=== PATIENT | male | born 1930 | race Caucasian/White ===

== ENCOUNTER → 2016-10-27 | Outpatient (CLI) | payer BC ==
[2016-10-27 10:56] LABS: BASO % 0.5 %; BASO ABS # 0.03 K/uL (0-0.2); COMPLETE YES; IG% 0.3 %; LYMPH % 34.8 %; LYMPH ABS # 2.18 K/uL (1.2-3.4); MEAN CORPUSCULAR HEMOGLOBIN 29.1 pg (25-34); MEAN CORPUSCULAR HGB CONC 34.6 g/dl (32-36); MEAN PLATELET VOLUME 9.8 fL (7.4-10.4); NEUT % 52.4 %; PLATELET COUNT 223 K/uL (130-400); RED BLOOD COUNT 4.88 M/uL (4.7-6.1); WHITE BLOOD COUNT 6.27 K/uL (4.8-10.8)
[2016-10-27 11:01] LABS: URINE APPEARANCE CLOUDY (CLEAR); URINE BILIRUBIN NEG (NEG); URINE COLOR YELLOW; URINE EPITHELIAL CELL AUTO 0-5 /lpf (0-5); URINE NITRITE NEG (NEG); URINE SPECIFIC GRAVITY 1.029 (1.000-1.030); UROBILINOGEN NEG (NEG)
[2016-10-27 11:02] LABS: MANUAL MICROSCOPIC REQUIRED? NO; REVIEW REQ? NO
[2016-10-27 11:05] LABS: ALT/SGPT 27 U/L (12-78); AST/SGOT 14 U/L (15-37); BLOOD UREA NITROGEN 20 mg/dl (7-18); BUN/CREATININE RATIO 21.2 (10-20); CARBON DIOXIDE 28 mmol/L (21-32); CHLORIDE 106 mmol/L (98-107); CHOLESTEROL 133 mg/dl (0-200); CREATININE 0.95 mg/dl (0.60-1.40); GLUCOSE 153 mg/dl (70-99); POTASSIUM 3.6 mmol/L (3.5-5.1); SODIUM 143 mmol/L (136-145); URIC ACID 5.6 mg/dl (2.6-7.2)
[2016-10-27 11:15] LABS: HDL CHOLESTEROL 33 mg/dl; LDL CHOLESTEROL CALCULATED 62 mg/dl; TRIGLYCERIDES 190 mg/dl (0-150); VERY LOW DENSITY LIPOPROT CALC 38 mg/dl
[2016-10-27 11:23] LABS: ESTIMATED AVERAGE GLUCOSE 157 mg/dl; HA1C FLAG Normal (Normal)
== END | disposition home or self-care (01) ==
LOC: C.LABBC 07:31
PROVIDERS: ATTEND Internal Medicine
DX: E11.9 Type 2 diabetes mellitus without complications (principal)

== ENCOUNTER → 2017-02-15 | Outpatient (CLI) | payer BC ==
[~2017-02-15] MED LIST: GLIP-197 PO; LSN/10125 PO; METF-384 PO; SIMV40TA2 PO
[2017-02-15 11:35] LABS: ESTIMATED AVERAGE GLUCOSE 146 mg/dl; HA1C FLAG Normal (Normal)
== END | disposition home or self-care (01) ==
LOC: C.LABBC 07:27
PROVIDERS: ATTEND Internal Medicine
DX: E11.9 Type 2 diabetes mellitus without complications (principal)

== ENCOUNTER → 2017-06-02 | Day surgery (SDC) | payer BC ==
[2017-05-20 10:30] VITALS: Ht 179.1 cm; Wt 80.9 kg
[~2017-06-02] VITALS: Ht 179.1 cm; Wt 80.9 kg
[~2017-06-02] MED LIST changes: +500ML BSS 0.3ML EPI 1:1000PF IRRIG ONE; +ACETAMINOPHEN 325 MG TAB PO PRN; +AMVISC PLUS 0.8ML SYRINGE INT OCU ONE; +ATROPINE SULFATE 0.1 MG/ML 5ML SYR IV PRN; +BETAXOLOL HCL 0.25% OP SUSP PER DROP CHARGE OPL SCH; +BRIMONIDINE TART 0.2% OP SOLN PER DROP CHARGE ONE; +BRIMONIDINE TARTRATE 0.2% 5ML ONE; +BSS FLUSH ONE; +ENDOCOAT 0.85ML SYRINGE INT OCU ONE; +EpHEDrine SULFATE INJ 50 MG/ML AMP IV PRN; +EpINEphrine INJ 1MG/ML AMP 1 MG/ML AMP ONE; +LACTATED RINGER'S 1000ML 500 ML IV SCH; +LIDOCAINE 4% OP SOLN DROP CHARGE ONE; +LIDOCAINE 4% OP SOLN DROP CHARGE OPL SCH; +LIDOCAINE HCL 1% MPF 2 ML VIAL ONE; +MIDAZOLAM HCL 1 MG/ML 2ML VIAL ONE; +MIX: 4ML BSS 1ML EPI 1:1000 PF INSTIL ONE; +MOXIFLOXACIN OPH SOLN PER DROP CHARGE ONE; +OCUCOAT 1 ML SOLN IO ONE; +POVIDONE-IODINE OP SOLN 30 ML BTL ONE; +PROPARACAINE 0.5% OP SOLN PER DROP CHARGE OPL SCH; +TOBRAMYCIN/DEXAMETHASONE OPH OINT PER APPLN CHARGE ONE
[2017-06-02] MEDS: PHENYLEPHRINE HCL 2.5% OP SOLN PER DROP CHARGE OPL SCH ×2 (06:35→06:41)
[2017-06-02] MEDS: TROPICAMIDE 1% OP SOLN PER DROP CHARGE OPL SCH ×2 (06:36→06:42)
[2017-06-02] MEDS: CYCLOPENTOLATE HCL 1% OP SOLN PER DROP CHARGE OPL SCH ×2 (06:37→06:43)
[2017-06-02] MEDS: MOXIFLOXACIN OPH SOLN PER DROP CHARGE OPL SCH ×2 (06:38→06:48)
--- NOTE | 2017-06-02 06:41 | History & Physical Bridge - [place] ---
H&P Re-Evaluation Bridge Note: I have examined the patient, reviewed the History & Physical and in the interval since the performance of the History & Physical I have noted the following changes of clinical significance: No changes noted
--- NOTE | 2017-06-02 07:16 | Discharge Instructions-SurgCtr ---
Discharge Instructions Date of Service Jun 02, 2017. Visit Reason for Visit: Cataract Left Eye Discharge Discharge Diagnosis / Problem: lens implant left eye Discharge Goals Goal(s): Improve function Medications Stopped Medications Name(s): METFORMIN LAST DOSE ON WEDNESDAY Activity Recommendations Activity Limitations: resume your previous activity Lifting Limitations: no more than 10 pounds Exercise/Sports Limitations: gradually increase as tolerated May Resume Sexual Activity: when tolerated Shower/Bathe: tomorrow Driving or Machine Use: resume 1 day after discharge Anesthesia . Post Anesthesia Instructions: If you have had General Anesthesia or IV Sedation: * Do not drive today. * Resume driving when surgeon permits. * Do not make important decisions or sign legal documents today. * Call surgeon for: 1. Temperature elevations greater than 101 degrees F. 2. Uncontrollable pain. 3. Excessive bleeding. 4. Persistent nausea and vomiting. 5. Medication intolerance (nausea, vomiting or rash). * For nausea and vomiting use only clear liquids such as: tea, soda, bouillon until nausea subsides, then gradually increase diet as tolerated. * If you have any concerns or questions, call your surgeon's office. If physician is unavailable and it is an emergency, call 911 or go to the nearest emergency room. . Instructions / Follow-Up Instructions / Follow-Up ACTIVITY RECOMMENDATIONS: * Light activities. * Mild irritation and blurred vision are common for the first few days. * You may walk outside, read, watch television. * Redness around the white part of the eye is common. MEDICATIONS: Resume previous medications unless instructed otherwise by your surgeon. Start all eye drops at 1 pm today: * Eye drops (today and tomorrow): Durezol - one drop in operative eye every 3 hours while awake Ofloxacin - one drop in operative eye every 3 hours while awake SPECIAL CARE INSTRUCTIONS: * Tape plastic shield over eye to sleep at night. Call your doctor at with any concerns or problems. FOLLOW UP VISIT: Follow-up with Dr Fisher at [place] office as scheduled. Diet Recommendations Home Diet: no limitations Procedures Procedures Performed: Left Cataract Phacoemulsification With Intraocular Lens Implant Pending Studies Studies pending at discharge: no Medical Emergencies . Who to Call and When: Medical Emergencies: If at any time you feel your situation is an emergency, please call 911 immediately. . Non-Emergent Contact Non-Emergency issues call your: [employer] Call Non-Emergent contact if: your pain is not controlled [phone] . . "Provider Documentation" section prepared by Jose Fisher. .
--- NOTE | 2017-06-02 07:20 | [facility] Operative Report ---
Operative Report Date of Service Jun 02, 2017. Operative Report 1. PREOPERATIVE DIAGNOSIS: Senile nuclear cataract, left eye. 2. POSTOPERATIVE DIAGNOSIS: Senile nuclear cataract, left eye. 3. PROCEDURE: Phacoemulsification of left cataract with posterior chamber lens implant, type [employer], model MI60L, power +20.0 diopters. ANESTHESIA: Local standby. SURGEON: Dr. Fisher. COMPLICATIONS: None. OPERATING TIME: 10 minutes. 4. OPERATION AND FINDINGS: DESCRIPTION OF PROCEDURE: The left pupil was dilated. The anesthetic was administered using a topical technique. The left eye was prepped and draped. A speculum was placed. A clear corneal incision was formed. The chamber was filled with Amvisc Plus and Endocoat. Epinephrine solution was used. A paracentesis was placed. A capsulorrhexis was performed. The nucleus was hydrodissected. A dense lens was removed with phacoemulsification. There was a mild amount of Iris atrophy. Time was 12.36 seconds. The aspiration unit was used to remove the cortex. The capsule was filled with Amvisc Plus. The lens implant was folded and placed into the capsule. The incision was hydrated. The Amvisc was aspirated. The wound was secure. The chamber was deep. The pupil was round. Brimonidine, TobraDex ointment and Vigamox solution were placed. The speculum was removed. The patient was returned to the Recovery Room in stable condition. I attest to the content of the Intraoperative Record and any orders documented therein. Any exceptions are noted below. The scribe's documentation has been prepared in my presence, under my direction and personally reviewed by me in its entirety. I confirm that the note above accurately reflects all work, treatment, procedures, and medical decision making performed by me. I personally scribed for Jose Fisher M.D. ([email or web address]) on 06/02/17 at 07:20. Electronically submitted by Milla WESTON).
--- NOTE | 2017-06-02 07:35 | Anesthesiology Progress Note ---
Anesthesia Post Op Note Date & Time Jun 02, 2017 at 07:34 Vital Signs Pain Intensity: 0 Vital Signs Past 12 Hours Date Time Temp Pulse Resp B/P (MAP) Pulse Ox O2 Delivery O2 Flow Rate FiO2 06/02/17 07:21 36.3 67 12 133/76 (95) 97 Room Air 06/02/17 06:26 36.9 73 22 153/90 (111) 96 Room Air Notes Mental Status: alert / awake / arousable, participated in evaluation Nausea / Vomiting: adequately controlled Pain: adequately controlled Airway Patency, RR, SpO2: stable & adequate BP & HR: stable & adequate Hydration State: stable & adequate Anesthetic Complications: no major complications apparent
[2017-06-02 07:46] VITALS: BP 144/82; PULSE 72; TEMP 36.4; O2SAT 96
== END | disposition home or self-care (01) ==
LOC: X.SURG 06:05
PROVIDERS: ATTEND Specialist
DX: H25.12 Age-related nuclear cataract, left eye (principal); E11.36 Type 2 diabetes mellitus with diabetic cataract; I10 Essential (primary) hypertension; Z79.84 Long term (current) use of oral hypoglycemic drugs; Z79.899 Other long term (current) drug therapy

== ENCOUNTER → 2017-08-13 | Outpatient (CLI) | payer BC ==
[~2017-08-13] MED LIST changes: -500ML BSS 0.3ML EPI 1:1000PF IRRIG ONE; -ACETAMINOPHEN 325 MG TAB PO PRN; -AMVISC PLUS 0.8ML SYRINGE INT OCU ONE; -ATROPINE SULFATE 0.1 MG/ML 5ML SYR IV PRN; -BETAXOLOL HCL 0.25% OP SUSP PER DROP CHARGE OPL SCH; -BRIMONIDINE TART 0.2% OP SOLN PER DROP CHARGE ONE; -BRIMONIDINE TARTRATE 0.2% 5ML ONE; -BSS FLUSH ONE; -ENDOCOAT 0.85ML SYRINGE INT OCU ONE; -EpHEDrine SULFATE INJ 50 MG/ML AMP IV PRN; -EpINEphrine INJ 1MG/ML AMP 1 MG/ML AMP ONE; -LACTATED RINGER'S 1000ML 500 ML IV SCH; -LIDOCAINE 4% OP SOLN DROP CHARGE ONE; -LIDOCAINE 4% OP SOLN DROP CHARGE OPL SCH; -LIDOCAINE HCL 1% MPF 2 ML VIAL ONE; -MIDAZOLAM HCL 1 MG/ML 2ML VIAL ONE; -MIX: 4ML BSS 1ML EPI 1:1000 PF INSTIL ONE; -MOXIFLOXACIN OPH SOLN PER DROP CHARGE ONE; -OCUCOAT 1 ML SOLN IO ONE; -POVIDONE-IODINE OP SOLN 30 ML BTL ONE; -PROPARACAINE 0.5% OP SOLN PER DROP CHARGE OPL SCH; -TOBRAMYCIN/DEXAMETHASONE OPH OINT PER APPLN CHARGE ONE
[2017-08-13 11:13] LABS: BASO % 0.3 %; BASO ABS # 0.02 K/uL (0-0.2); EOS % 3.4 %; EOS ABS # 0.24 K/uL (0-0.5); HEMATOCRIT 40.8 % (42-52); IG# 0.04 K/uL (0.00-0.02); LYMPH % 30.3 %; LYMPH ABS # 2.13 K/uL (1.2-3.4); MEAN CELL VOLUME 86.8 fL (80-100); MEAN CORPUSCULAR HEMOGLOBIN 29.8 pg (25-34); MEAN CORPUSCULAR HGB CONC 34.3 g/dl (32-36); MEAN PLATELET VOLUME 10.1 fL (7.4-10.4); MONO % 8.1 %; MONO ABS # 0.57 K/uL (0.11-0.59); NEUT % 57.3 %; NEUT ABS # 4.02 K/uL (1.4-6.5); PLATELET COUNT 212 K/uL (130-400); RED CELL DISTRIBUTION WIDTH CV 14.3 % (11.5-14.5); RED CELL DISTRIBUTION WIDTH SD 44.6 fL (36.4-46.3); WHITE BLOOD COUNT 7.02 K/uL (4.8-10.8)
[2017-08-13 11:28] LABS: HEMOGLOBIN A1C 6.9 % (4.5-5.6)
[2017-08-13 11:36] LABS: ALT/SGPT 36 U/L (12-78); AST/SGOT 17 U/L (15-37); BLOOD UREA NITROGEN 18 mg/dl (7-18); CALCIUM 8.8 mg/dl (8.5-10.1); CARBON DIOXIDE 30 mmol/L (21-32); GLUCOSE 157 mg/dl (70-99); POTASSIUM 3.6 mmol/L (3.5-5.1); SODIUM 138 mmol/L (136-145)
[2017-08-13 11:50] LABS: CHOLESTEROL 144 mg/dl (0-200); LDL CHOLESTEROL CALCULATED 67 mg/dl
== END | disposition home or self-care (01) ==
LOC: C.LABBC 07:39
PROVIDERS: ATTEND Internal Medicine
DX: E11.9 Type 2 diabetes mellitus without complications (principal)

== ENCOUNTER → 2017-11-29 | Outpatient (CLI) | payer BC ==
[2017-11-29 11:38] LABS: HEMOGLOBIN A1C 7.1 % (4.5-5.6)
== END | disposition home or self-care (01) ==
LOC: C.LABBC 07:47
PROVIDERS: ATTEND Internal Medicine
DX: E11.9 Type 2 diabetes mellitus without complications (principal)

== ENCOUNTER → 2018-04-04 | Outpatient (CLI) | payer BC ==
[2018-04-04 10:29] LABS: BASO % 0.5 %; BASO ABS # 0.03 K/uL (0-0.2); EOS % 3.2 %; HEMATOCRIT 41.1 % (42-52); HEMOGLOBIN 13.8 g/dL (14.0-18.0); IG# 0.04 K/uL (0.00-0.02); LYMPH % 32.6 %; LYMPH ABS # 2.04 K/uL (1.2-3.4); MEAN CELL VOLUME 86.7 fL (80-100); MEAN CORPUSCULAR HEMOGLOBIN 29.1 pg (25-34); MEAN CORPUSCULAR HGB CONC 33.6 g/dl (32-36); MEAN PLATELET VOLUME 10.5 fL (7.4-10.4); NEUT % 55.1 %; NEUT ABS # 3.45 K/uL (1.4-6.5); PLATELET COUNT 210 K/uL (130-400); RED CELL DISTRIBUTION WIDTH CV 14.1 % (11.5-14.5); RED CELL DISTRIBUTION WIDTH SD 44.4 fL (36.4-46.3); WHITE BLOOD COUNT 6.26 K/uL (4.8-10.8)
[2018-04-04 10:39] LABS: ALT/SGPT 35 U/L (12-78); AST/SGOT 20 U/L (15-37); BLOOD UREA NITROGEN 16 mg/dl (7-18); CALCIUM 8.5 mg/dl (8.5-10.1); CARBON DIOXIDE 27 mmol/L (21-32); CHOLESTEROL 123 mg/dl (0-200); CREATININE 0.93 mg/dl (0.60-1.40); GLUCOSE 150 mg/dl (70-99); LDL CHOLESTEROL CALCULATED 54 mg/dl; POTASSIUM 3.6 mmol/L (3.5-5.1); SODIUM 139 mmol/L (136-145)
== END | disposition home or self-care (01) ==
LOC: C.LABBC 07:34
PROVIDERS: ATTEND Internal Medicine
DX: I10 Essential (primary) hypertension (principal); E11.9 Type 2 diabetes mellitus without complications; E78.00 Pure hypercholesterolemia, unspecified

== ENCOUNTER 2020-01-25 14:43 | Inpatient (IN) ==
[2020-01-25] MEDS ORDERED: SODIUM CHLORIDE 0.9% 500 ML IV SCH (15:00)
[2020-01-25 15:16] LABS: Eosinophils # (auto) 0.01 K/uL (0-0.5); Eosinophils % (auto) 0.1 %; Hematocrit (blood only) 43.1 % (42-52); Hemoglobin 14.2 g/dL (14.0-18.0); Immature Granulocytes # (auto) 0.02 K/uL (0.00-0.02); Immature Granulocytes % (auto) 0.3 %; Lymphocytes # (auto) 0.59 K/uL (1.2-3.4); Lymphocytes % (auto) 8.6 %; Mean Corpuscular Hemoglobin 28.9 pg (25-34); Mean Corpuscular Hgb Conc 32.9 g/dL (32-36); Mean Corpuscular Volume 87.8 fL (80-100); Mean Platelet Volume 10.2 fL (7.4-10.4); Monocytes # (auto) 0.02 K/uL (0.11-0.59); Monocytes % (auto) 0.3 %; Neutrophils # (auto) 6.21 K/uL (1.4-6.5); Neutrophils % (auto) 90.7 %; Platelet Count 274 K/uL (130-400); RDW Coefficient of Variation 13.8 % (11.5-14.5); RDW Standard Deviation 44.3 fL (36.4-46.3); Red Blood Count 4.91 M/uL (4.7-6.1); White Blood Count 6.85 K/uL (4.8-10.8)
[2020-01-25 15:27] LABS: D Dimer 430 ug/L FEU (0-500); Partial Thromboplastin Time 27.8 Seconds (21.0-31.0)
[2020-01-25 15:34] LABS: Alanine Aminotransferase 29 U/L (12-78); Albumin Level 3.8 gm/dl (3.4-5.0); Aspartate Aminotransferase 18 U/L (15-37); BUN Creatinine Ratio 25.2 (10-20); Blood Urea Nitrogen 26 mg/dl (7-18); Calcium 8.9 mg/dl (8.5-10.1); Carbon Dioxide 26 mmol/L (21-32); Chloride 102 mmol/L (98-107); Est GFR (Non-African American) 63.8; Glucose 272 mg/dl (70-99); Lipase 107 U/L (73-393); Potassium 3.8 mmol/L (3.5-5.1); Sodium 138 mmol/L (136-145)
--- NOTE | 2020-01-25 15:37 | XRay Report ---
XR chest 1V portable CLINICAL HISTORY: Chest Pain dyspnea COMPARISON STUDY: No previous studies for comparison. FINDINGS: The bones soft tissues and hemidiaphragms are normal. The cardiomediastinal silhouette is n ormal. The lungs are clear. The pulmonary vasculature is normal. Slight reticular nodular changes thr oughout the mid and lower lungs bilaterally felt to be statistically chronic. IMPRESSION: Chronic change. No acute process. ACT 112: Negative or not required by law. The above report was generated using voice recognition software. It may contain grammatical, syntax or spelling errors. Electronically signed by: Albino Zuluaga M.D. 01/25/2020 3:35 PM
[2020-01-25 15:45] LABS: Alkaline Phosphatase 77 U/L (45-117); Bilirubin,Total 0.4 mg/dl (0.2-1); Creatine Kinase 181 U/L (39-308); Globulin 3.7 gm/dl (2.5-4.0); Total Protein 7.5 gm/dl (6.4-8.2); Troponin I 0.134 ng/ml (0-0.045)
--- NOTE | 2020-01-25 15:57 | Emergency Department Note ---
History of Present Illness General Chief Complaint: Chest Pain Stated Complaint: LEFT SIDED CHEST PAIN Time Seen by Provider: 01/25/20 14:57 Source: patient Mode of arrival: ambulatory Limitations: no limitations History of Present Illness Provider Complaint: chest pain Time: 13:00 Duration: constant and improved Onset: during rest Pain Location: substernal Pain Radiation: back Severity: moderate Maximum Pain Intensity: 5 Current Pain Intensity: 1 Quality: + tightness Relieved By: + rest Exacerbated By: + nothing Context: no recent illness, no recent travel and no history of DVT/PE Associated symptoms: + dyspnea; no nausea Treatments prior to arrival: aspirin (650 mg p.o. at home) Home Medications Home Medications Medication Instructions Recorded Confirmed Type metformin 1,000 mg tablet 1,000 mg PO BID #180 tab 09/07/19 01/25/20 Rx glipizide 5 mg PO QAM 01/25/20 01/25/20 History lisinopril-hydrochlorothiazide 1 tab PO QAM 01/25/20 01/25/20 History simvastatin 40 mg PO PM 01/25/20 01/25/20 History Allergies Allergy/AdvReac Type Severity Reaction Status Date / Time Sulfa (Sulfonamide Allergy Unknown ? Verified 01/25/20 15:51 Antibiotics) REMEMBER/ A CHILD Past Med/Surg History Medical History Breast mass (Chronic) Diabetes mellitus (Chronic) Enlarged prostate without lower urinary tract symptoms (luts) (Chronic) Hypercholesterolemia (Chronic) Hypertension (Chronic) Left knee DJD Peripheral neuropathy (Chronic) Social History Feels Safe at Home: Yes Smoking Status: Never smoker Review of Systems A total of 10 systems reviewed and were otherwise negative Physical Exam Vital Signs Vital Signs - 24 hr 01/25/20 14:48 01/25/20 15:18 01/25/20 15:30 Temperature 36.9 C Temperature Source Oral Pulse Rate 112 H 106 H 107 H Respiratory Rate 18 Respiratory Effort / Characteristics Non-Labored Respiratory Depth Normal Respiratory Pattern Regular Blood Pressure 152/87 H Blood Pressure Mean 108 Blood Pressure Position Sitting Pulse Oximetry 98 95 95 Oxygen Delivery Method Room Air Sepsis Recent Fever Within 48 Hours No Sepsis Action Taken by Nursing No Action Required 01/25/20 15:54 01/25/20 16:00 Temperature Temperature Source Pulse Rate 101 H 98 H Respiratory Rate 24 24 Respiratory Effort / Characteristics Respiratory Depth Respiratory Pattern Blood Pressure 140/82 127/77 Blood Pressure Mean 96 90 Blood Pressure Position Pulse Oximetry 96 95 Oxygen Delivery Method Room Air Sepsis Recent Fever Within 48 Hours Sepsis Action Taken by Nursing CONSTITUTIONAL/VITAL SIGNS: Reviewed / noted above. GENERAL: Non-toxic in appearance. INTEGUMENTARY: Warm, dry, and [place]. HEAD: Normocephalic. EYES: without scleral icterus or trauma. ENT/OROPHARYNX: clear and moist. LYMPHADENOPATHY/NECK: Is supple without lymphadenopathy or meningismus. RESPIRATORY: Lungs clear and equal. CARDIOVASCULAR: Regular rate and rhythm. GI/ABDOMEN: Soft and nontender. No organomegaly or pulsatile mass. No rebound or guarding. Normal bowel sounds. EXTREMITIES: Warm and well perfused. BACK: No CVA tenderness. NEUROLOGICAL: Intact without focal deficits. PSYCHIATRIC: normal affect. MUSCULOSKELETAL: Normally developed with good muscle tone. TRIAGE NURSING DOCUMENTATION REVIEWED. Course Administered Medications Discontinued Medications Sodium Chloride (Nss) 500 mls @ 999 mls/hr IV .Q31M SHAR Stop: 01/25/20 15:30 Last Infusion: 01/25/20 15:51 Dose: 0 mls/hr Documented by: [id number] Admin: 01/25/20 15:15 Dose: 999 mls/hr Documented by: [id number] Medical Decision Making Differential Diagnosis The differential that was considered includes acute myocardial infarction, acute coronary syndrome, myocarditis, pericarditis, pericardial effusions /tamponade, esophageal perforation, thoracic aortic dissection, pulmonary embolism, pneumonia, pneumothorax, pancreatitis, shingles, acute cholecystitis, perforated abdominal viscus. Medical Records Attestation: I reviewed the patient's medical records. Home Medications Current Medication List: was personally reviewed by me Laboratory Data Attestation: I reviewed the patient's lab results. Result diagrams: 01/25/20 15:00 01/25/20 15:00 Labs: Lab Results 01/25/20 01/25/20 01/25/20 Range/Units 15:00 15:00 15:00 WBC 6.85 (4.8-10.8) K/uL RBC 4.91 (4.7-6.1) M/uL Hgb 14.2 (14.0-18.0) g/dL Hct 43.1 (42-52) % MCV 87.8 (80-100) fL MCH 28.9 (25-34) pg MCHC 32.9 (32-36) g/dL RDW Std Deviation 44.3 (36.4-46.3) fL RDW Coeff of Alison 13.8 (11.5-14.5) % Plt Count 274 (130-400) K/uL MPV 10.2 (7.4-10.4) fL Immature Gran % (Auto) 0.3 % Neut % (Auto) 90.7 % Lymph % (Auto) 8.6 % [place] % (Auto) 0.3 % Eos % (Auto) 0.1 % Baso % (Auto) 0.0 % Immature Gran # (Auto) 0.02 (0.00-0.02) K/uL Neut # (Auto) 6.21 (1.4-6.5) K/uL Lymph # (Auto) 0.59 L (1.2-3.4) K/uL [place] # (Auto) 0.02 L (0.11-0.59) K/uL Eos # (Auto) 0.01 (0-0.5) K/uL Baso # (Auto) 0.00 (0-0.2) K/uL PT 11.0 (9.0-12.0) Seconds INR 1.0 (0.9-1.1) APTT 27.8 (21.0-31.0) Seconds PTT Ratio 1.0 D-Dimer 430 (0-500) ug/L FEU Sodium 138 (136-145) mmol/L Potassium 3.8 (3.5-5.1) mmol/L Chloride 102 (98-107) mmol/L Carbon Dioxide 26 (21-32) mmol/L Anion Gap 10.0 (3-11) BUN 26 H (7-18) mg/dl Creatinine 1.04 (0.6-1.4) mg/dl Est Cr Clr Drug Dosing Not Reportable Est GFR ( Amer) 74.0 Est GFR (Non-Af Amer) 63.8 BUN/Creatinine Ratio 25.2 H (10-20) Glucose 272 H (70-99) mg/dl Calcium 8.9 (8.5-10.1) mg/dl Total Bilirubin 0.4 (0.2-1) mg/dl AST 18 (15-37) U/L ALT 29 (12-78) U/L Alkaline Phosphatase 77 (45-117) U/L Total Creatine Kinase 181 (39-308) U/L Troponin I 0.134 H* (0-0.045) ng/ml Total Protein 7.5 (6.4-8.2) gm/dl Albumin 3.8 (3.4-5.0) gm/dl Globulin 3.7 (2.5-4.0) gm/dl Albumin/Globulin Ratio 1.0 (0.9-2) Lipase 107 (73-393) U/L Imaging Data Chest x-ray: Attestation: I personally reviewed and interpreted this imaging study as follows: Radiologist's impression: IMPRESSION: Chronic change. No acute process. ECG Data Attestation: I personally reviewed and interpreted this ECG as follows: Indication: chest pain Rate (beats per minute): 111 Rhythm: sinus tachycardia Findings: + ST depression (Lateral); no PVC, no ST elevation and no prolonged QT Comparison ECG Date: no prior available Additional Comments: EKG #2 with improvement of chest pain, the ST depressions seem to improve slightly as well. Blood Pressure Blood Pressure Findings: Normal blood pressure MDM Narrative The patient is a 89-year-old male who presents with some chest pain that started at 1 PM today. He states that he took 650 mg of oral aspirin at 2:20 PM. His pain was described as a pressure that radiated his from his chest into his back between the shoulder blades. He was sitting at the time. There is otherwise no radiation of his pain. The patient states that he has history of type 2 diabetes and peripheral neuropathy. He also had an injection of steroids in his left knee earlier today. He had a little shortness of breath. The patient otherwise has no complaints. He states that his symptoms have improved. His initial blood pressure was elevated but a second blood pressure was normal. His physical exam was unremarkable. The patient had a twelve-lead EKG that showed a sinus tach at a rate of [address] depressions in the lateral leads. His CBC and chemistry panel was unremarkable. D-dimer was negative. Troponin was slightly elevated at 0.134. The patient actually had significant improvement of his symptoms after taking the aspirin. A repeat EKG during his ED stay revealed that his ST depressions seem to have slightly improved. The patient was treated with IV fluids, sublingual nitro, nitroglycerin paste and Lovenox subcu. I spoke with the hospitalist, who will see the patient for further inpatient evaluation and care. Cardiac monitoring: An order was placed for continuous cardiac monitoring. The monitor shows a rate of 90 with sinus rhythm. Impression & Plan Non-ST elevation (NSTEMI) myocardial infarction Discharge Plan Visit Data Chief Complaint: Chest Pain Stated Complaint: LEFT SIDED CHEST PAIN ED Provider: Britton Malone Discharge Problem: Non-ST elevation (NSTEMI) myocardial infarction Patient Disposition: Admitted As Inpatient Forms Stand Alone Forms: My [facility] Prescriptions Prescriptions: No Action betamethasone acet,sod phos 6 mg/mL suspension 12 mg IA ONCE Qty: 2 RF: 0 metformin 1,000 mg tablet 1,000 mg PO BID Qty: 180 RF: 3 lisinopril-hydrochlorothiazide 20-12.5 mg tablet 1 tab PO QAM RF: 0 glipizide 5 mg tablet extended release 24hr 5 mg PO QAM RF: 0 simvastatin 40 mg tablet 40 mg PO PM RF: 0 Referrals Referrals: Armen Bowen MD [Primary Care Provider] -
[2020-01-25] MEDS ORDERED: NITROGLYCERIN SL 0.4 MG/TAB TAB SL STA (15:58)
[2020-01-25] MEDS ORDERED: NITROGLYCERIN 2% OINTMENT 30GM TUBE EXT ONE (15:59)
[2020-01-25] MEDS ORDERED: ENOXAPARIN 1 MG/KG SC SCH (16:00)
[2020-01-25] MEDS ORDERED: MoRPHine SULFATE 4 MG/ML 1 ML CARP\\VIAL IV PRN (16:44)
[2020-01-25] MEDS ORDERED: ONDANSETRON INJ 2 MG/ML 2 ML VIAL IV PRN (16:44)
[2020-01-25] MEDS ORDERED: MoRPHine SULFATE 2 MG/ML CARP IV PRN (16:44)
[2020-01-25] MEDS ORDERED: ACETAMINOPHEN 325 MG TAB PO PRN (16:44)
--- NOTE | 2020-01-25 16:45 | History & Physical Report ---
Date of Service January 25, 2020 Assessment & Plan (1) Non-ST elevation (NSTEMI) myocardial infarction: - Admit to tele - Trend cardiac biomarkers, initial set = 0.134 - EKG reviewed as above, ST depressions in the lateral leads - Check 2 D echo - Cardiology consulted, discussed with Dr. Farah- make NPO after midnight in the event that pt needs a cardiac cath - Lovenox 70 mg/kg q12H, first dose given in ER - Check lipid panel and A1C with am labs - ASA daily (2) Hypertension: -Continue lisinoprilhydrochlorothiazide -BP well controlled (3) Hypercholesterolemia: -Change simvastatin to high intensity statin -- atorvastatin 80 mg HS--patient reports that he had taken himself off of this for 1 month to see a peripheral neuropathy/myalgias it would improve, and resumed this 1 week ago. - Check lipids with am labs (4) Diabetes mellitus: - A1C with am labs - ISS with accuchecks achs - HH/DM diet - Hold glipizide (5) Left knee DJD: - Follow with ortho as outpt. Had Left knee injection this morning. (6) Peripheral neuropathy: - PT/OT consults (7) Radiculopathy due to lumbar intervertebral disc disorder: - Follow with neuro as outpt, has had EMG completed - Pt had been scheduled to follow [facility] regarding peripheral neuropathy/radiculopathy in october, will need to have follow up with PCP arranged to get scheduled for this. Pt did not go to [facility] due to COVID-19 and no travel advisory. (8) DVT prophylaxis: -Lovenox 1 mg/kg CODE: Full code Dispo: From home, likely to remain in the hospital x 1-2 days History of Present Illness Primary Care Provider: Armen Bowen MD This is an 89 yo M with PMHx of HTN, HLD, DM II, peripheral neuropathy, Left knee DJD, who presents to the ER with acute onset of substernal chest pain radiating to his back which occurred around 1 PM today. Patient presented with his son, who is at bedside.. This morning, the pt went to a routine orthopedist appointment and had a injection into the left knee for pain, proceeded to run some errands, had lunch all in his usual health. Once he was sitting down on his sofa at home, he began to experience pain. He became diaphoretic, felt crushing chest pain rated a 8/10, which radiated between his shoulder blades. He denies that he had ever experienced this type of pain before, and was not doing anything exertional at the onset. And called his son who brought him to the ER. Patient was found to have a bumped troponin at 0.134, and ST depressions in the lateral leads on EKG. patient was given aspirin, 1 dose of oral nitro under the tongue, and Nitropaste in the ER and his pain has completely subsided. He has had several other issues go on within the past few months including weight loss of >40 lbs for unexplained reasons which he calls "atrophy" everywhere. He is drinking glucerna protein supplements once daily. He has had progressive neuropathy into his legs, with a right foot drop develop and now wears a brace for help. He uses a walker within his 2 story home at all times, and is considering installing a chair lift to get upstairs. He took a break from his statin for 1 month to see if any of his symptoms improved, however didn't, and restarted it about 1 week ago. He has discussed these complaints with his PCP Dr. Bowen and neurologist, Dr. Louis. He was also previously scheduled for further workup at [facility], but has not been able to go since - and no travel advisory. He ultimately is discouraged by his changes in health, and reports "I was cutting my grass and everything my self last year.", stating that he can no longer do something like this. He denies any other specific complaints. Allergies Allergy/AdvReac Type Severity Reaction Status Date / Time Sulfa (Sulfonamide Allergy Unknown ? Verified 01/25/20 15:51 Antibiotics) REMEMBER/ A CHILD Home Medications Home Medications Medication Instructions Recorded Confirmed Type metformin 1,000 mg tablet 1,000 mg PO BID #180 tab 09/07/19 01/25/20 Rx glipizide 5 mg PO QAM 01/25/20 01/25/20 History lisinopril-hydrochlorothiazide 1 tab PO QAM 01/25/20 01/25/20 History simvastatin 40 mg PO PM 01/25/20 01/25/20 History Past Med/Surg History Medical History Breast mass (Chronic) Diabetes mellitus (Chronic) Enlarged prostate without lower urinary tract symptoms (luts) (Chronic) Hypercholesterolemia (Chronic) Hypertension (Chronic) Left knee DJD Peripheral neuropathy (Chronic) Social History Preferred Language: [place] Communication Ability: Effective Surveillance Supervisor Required: No Beliefs That Will Affect Care: None Current Living Situation: Alone Feels Safe at Home: Yes Safety Concerns: Feels Safe At This Time Smoking Status: Light tobacco smoker Tobacco Type: cigars ; Hx Alcohol Use: No Hx Substance Use: No Review of Systems Review of Systems: Constitutional: No fever, no chills, + sweats as per HPI Eyes: No diplopia, no worsening or blurred vision ENT: normal hearing, no trouble swallowing Respiratory: No cough, sputum, dyspnea at rest or on exertion Cardiovascular: As per HPI, no tightness or palpitations Abdomen: No pain, nausea, vomiting, diarrhea or constipation Musculoskeletal: No joint pain, calf pain, swelling Neurologic: No weakness, numbness/tingling, or balance problems Psychiatric: No anxiety or depression Skin: No rash or itch Physical Exam Physical Exam: General: awake, alert, no apparent distress Head: Normocephalic, atraumatic ENT: PERRL, EOMI, no pharyngeal exudate, mucous membranes moist Chest: Clear to auscultation, on room air, no adventitious breath sounds Cardiac: Regular rate and rhythm, no murmur, no JVD, normal peripheral pulses, good capillary refill Abdominal: NABS x 4 quadrants, soft, nondistended, nontender to palpation, no rebound, guarding or tenderness Extremities: Normal inspection, + wearing right foot brace, no peripheral edema or erythema, calfs nontender to palpation Psych: Normal mood and affect Neuro: AAO x 3, strength intact bilaterally in upper extremities, patient is unable to lift the right leg off the bed which is baseline for him, able to lift the left leg up approximately 1 inch off the bed, no gross motor deficits, speech is clear, no peripheral sensory deficits Skin: no rash or erythema Results & Data Results & Data ([facility]) Vital Signs (Past 12 Hours) Vital Signs Temp Pulse Resp BP Pulse Ox 01/25/20 16:36 102 H 95 01/25/20 16:30 102 H 128/80 94 01/25/20 16:23 105 H 26 H 95 01/25/20 16:00 98 H 24 127/77 95 01/25/20 15:54 101 H 24 140/82 96 01/25/20 15:30 107 H 95 01/25/20 15:18 106 H 95 01/25/20 14:48 36.9 C 112 H 18 152/87 H 98 Diagnostic Findings XR chest 1V portable CLINICAL HISTORY: Chest Pain dyspnea COMPARISON STUDY: No previous studies for comparison. FINDINGS: The bones soft tissues and hemidiaphragms are normal. The cardiomediastinal silhouette is normal. The lungs are clear. The pulmonary vasculature is normal. Slight reticular nodular changes throughout the mid and lower lungs bilaterally felt to be statistically chronic. IMPRESSION: Chronic change. No acute process. ACT 112: Negative or not required by law. ECG Additional Comments: 25-JAN-2020 15:00:17 [facility]-EDSTAT ROUTINE RETRIEVAL Poor data quality, interpretation may be adversely affected Sinus tachycardia Possible Anterior infarct , age undetermined Marked ST abnormality, possible inferolateral subendocardial injury Abnormal ECG No previous ECGs available 25mm/s 10mm/mV 150Hz 9.0.9 12SL 241 [place]: 3 Referred by: SELF Unconfirmed Vent. rate 111 BPM NH interval 146 ms QRS duration 100 ms QT/QTc 352/478 ms P-R-T axes 76 76 74 Code Status & VTE Plan Code Status Full code-discussed with the patient and his son at bedside Supervising Physician Co-Signing Physician Notes Attending Attestation & Admission Note: Pt seen/examined, chart reviewed, admission care plan d/w LAUREANO Henry. I agree w/ the noel components of her admission documentation. 89yo male with HTN/DM/Hyperlipidemia - had just received a left knee steroid injection at orthopedics - arrived to his home and then developed chest pain. Had never experienced pain like this before. Upon arrival to ER EKG showed ST depressions in the lateral leads. Pain improved with nitro, and repeat EKG showed improvement in the lateral ST segment changes. I saw the patient on the tele unit and he was feeling well and had no further chest pain. PMH, PSH, allergies, meds, sochx, famhx - reviewed VSS, no fever gen - NAD neck - no JVD heart - RRR, s1 s2, no murmur lungs - mild end-exp wheeze b/l abd - soft NT BS+ ext - no edema initial troponin 0.1; repeat 14.7 A/P: 1. NSTEMI 2. T2DM 3. HTN 4. hyperlipidemia 5. cough/wheezing lovenox 1mg/kg BID stop lisinopril-HCTZ combo add metoprolol 12.5mg BID given the NSTEMI resume lisinopril albeit at lower dose of 5mg/day hold oral DM agents; novolog sliding scale cardiology consult for probable cath; echo patient reports long-standing cough/wheeze seems to have some form of obstructive diseaes; will ultimately need PFTs cxr w/o pulm edema add xopenex HFA prn for cough/wheeze Armen Cruz MD PG Care Time/CCT Total # of Minutes Spent Total Time Spent with Patient: Total time spent is greater than 50% in coordination of care (as documented) at patient's floor/unit and/or counseling patient: Coding Level of Care Code 12469 Initial Inpt Care Lvl 3 Diagnoses Non-ST elevation (NSTEMI) myocardial infarction I21.4 Hypertension I10 Hypercholesterolemia E78.00 Diabetes mellitus E11.9 Left knee DJD M17.12 Peripheral neuropathy G62.9 Radiculopathy due to lumbar intervertebral disc disorder M51.16 DVT prophylaxis Z29.9
[2020-01-25] MEDS ORDERED: ENOXAPARIN 80 MG/0.8 ML SYR SQ ONE (17:00)
--- NOTE | 2020-01-25 17:17 | Electrocardiogram Report ---
Test Reason : Blood Pressure : / mmHG Vent. Rate : 097 BPM Atrial Rate : 097 BPM P-R Int : 150 ms QRS Dur : 096 ms QT Int : 378 ms P-R-T Axes : 073 073 078 degrees QTc Int : 480 ms Normal sinus rhythm Possible Left atrial enlargement Abnormal ECG When compared with ECG of 25-JAN-2020 15:00, (unconfirmed) No significant change was found Confirmed by Andre Farah ([id number]) on 01/25/2020 5:17:27 PM Referred By: REFERRED SELF Confirmed By:Shilo Farah
--- NOTE | 2020-01-25 17:17 | Electrocardiogram Report ---
Test Reason : Blood Pressure : / mmHG Vent. Rate : 111 BPM Atrial Rate : 111 BPM P-R Int : 146 ms QRS Dur : 100 ms QT Int : 352 ms P-R-T Axes : 076 076 074 degrees QTc Int : 478 ms Poor data quality, interpretation may be adversely affected Sinus tachycardia Marked ST abnormality, possible inferolateral subendocardial injury Abnormal ECG No previous ECGs available Confirmed by Andre Farah ([id number]) on 01/25/2020 5:16:24 PM Referred By: SELF Confirmed By:Shilo Farah
[2020-01-25] MEDS ORDERED: PATIENT'S HEIGHT AND/OR WEIGHT NEEDED SCH (17:45)
[2020-01-25] MEDS ORDERED: CARBOHYDRATES FOR HYPOGLYCEMIA PO PRN (17:56)
[2020-01-25] MEDS ORDERED: GLUCOSE 10 TABS/TUBE PO PRN (17:56)
[2020-01-25] MEDS ORDERED: BETAMETH SOD PHOS/ACETATE IA 6 MG/ML IA SCH (17:56)
[2020-01-25] MEDS ORDERED: GLUCOSE 40% GEL 15 GM TUBE PO PRN (17:56)
[2020-01-25] MEDS ORDERED: DEXTROSE 50% 50 ML SYRINGE IV PRN (17:56)
[2020-01-25] MEDS ORDERED: GLUCAGON FOR INJ 1 MG VIAL SQ PRN (17:56)
[2020-01-25] MEDS: INSULIN ASPART 100 UNITS/ML 3 ML PEN SC SCH ×2 (18:46→21:17)
[2020-01-25] MEDS ORDERED: LEVALBUTEROL TARTRATE 15 GM HFA.AER.AD INH PRN (18:47)
[2020-01-25] MEDS: NITROGLYCERIN 2% OINTMENT 30GM TUBE EXT SCH (23:42)
[2020-01-26] MEDS: NITROGLYCERIN 2% OINTMENT 30GM TUBE EXT SCH ×2 (04:52→10:57)
[2020-01-26] MEDS: ENOXAPARIN 80 MG/0.8 ML SYR SQ SCH ×2 (06:06→17:35)
[2020-01-26 06:57] LABS: Hematocrit (blood only) 35.6 % (42-52); Hemoglobin 11.9 g/dL (14.0-18.0); Mean Corpuscular Hgb Conc 33.4 g/dL (32-36); Mean Corpuscular Volume 86.8 fL (80-100); Mean Platelet Volume 9.8 fL (7.4-10.4); Platelet Count 245 K/uL (130-400); RDW Coefficient of Variation 13.7 % (11.5-14.5); RDW Standard Deviation 43.3 fL (36.4-46.3)
[2020-01-26 07:01] LABS: Estimated Average Glucose 126 mg/dl
[2020-01-26 07:24] LABS: Albumin Level 3.4 gm/dl (3.4-5.0); BUN Creatinine Ratio 30.7 (10-20); Calcium 8.3 mg/dl (8.5-10.1); Creatinine Clr Calc Pharmacy 56.4 ml/min; Est GFR (African American) 91.5; Potassium 3.7 mmol/L (3.5-5.1)
[2020-01-26 07:41] LABS: Albumin Globulin Ratio 1.1 (0.9-2); Bilirubin,Total 0.5 mg/dl (0.2-1); Total Protein 6.4 gm/dl (6.4-8.2); Troponin I 31.3 ng/ml (0-0.045)
[2020-01-26] MEDS ORDERED: METFORMIN HCL 500 MG TAB PO SCH (08:00)
[2020-01-26] MEDS: INSULIN ASPART 100 UNITS/ML 3 ML PEN SC SCH ×4 (08:03→21:21)
[2020-01-26] MEDS: ATORVASTATIN 40 MG TAB PO SCH (08:26)
[2020-01-26] MEDS: METOPROLOL TARTRATE 25 MG TAB PO SCH ×2 (08:29→20:30)
[2020-01-26] MEDS: lisinopriL 5 MG TAB PO SCH (08:30)
[2020-01-26] MEDS ORDERED: LISINOPRIL/HCTZ 20/12.5MG 1 TAB TAB PO SCH (09:00)
[2020-01-26] MEDS ORDERED: ASPIRIN 325 MG ECTAB PO SCH (09:00)
[2020-01-26] MEDS ORDERED: glipiZIDE ER 2.5 MG TABCR PO SCH (09:00)
--- NOTE | 2020-01-26 09:54 | XCELERA ---
[id number]
--- NOTE | 2020-01-26 10:27 | Hospitalist Progress Note ---
Date of Service January 26, 2020 Assessment & Plan (1) Non-ST elevation (NSTEMI) myocardial infarction: -Trop now up to 31, had another episode of upper back pain overnight relieved with nitropaste - EKG with ST depressions in the inferolateral leads on admission now resolved on ECG last night - ECHO with +WMAs in distal anterior wall and septum with hypokinesis - Cardiology consulted, discussed with Dr. Farah- for cardiac cath today - continue Lovenox 70 mg/kg q12H for now - lipid panel with LDL 98--> changed simvastatin to atorvastatin 80mg daily -started ASA, and started on metoprolol 12.5mg po bid -continue lisinopril from home but holding HCTZ -trend trop till peaks -continue tele monitoring (2) Hypertension: -Continue lisinopril but holding HCTZ for cath and also started metoprolol for NSTEMI -BP well controlled (3) Hypercholesterolemia: -Change simvastatin to high intensity statin -- atorvastatin 80 mg HS--patient reports that he had taken himself off of this for 1 month to see a peripheral neuropathy/myalgias it would improve, and resumed this 1 week ago. - LDL not at goal at 98 (4) Diabetes mellitus: - A1C here well controlled at 6.0% - ISS with accuchecks achs - HH/DM diet - Hold glipizide and metformin from home (5) Left knee DJD: - Follow with ortho as outpt. Had Left knee injection the AM of admission (6) Peripheral neuropathy: - PT/OT consults (7) Radiculopathy due to lumbar intervertebral disc disorder: - Follow with neuro as outpt, has had EMG completed - Pt had been scheduled to follow up with [facility] regarding peripheral neuropathy/radiculopathy in october, will need to have follow up with PCP arranged to get scheduled for this. Pt did not go to [facility] due to COVID-19 and no travel advisory. (8) DVT prophylaxis: -Lovenox 1 mg/kg CODE: Full code Dispo: continued stay on PCU Admission and Anticipated Discharge Date Admission Date: January 25, 2020 Subjective Pt had another episode overnight of mid back pain just like what brought him in however not as severe in nature. Never had chest pain. No SOB, no orthopnea. Currently feeling well with nitropaste in place. I discussed the case with Cardiology and his PCP who was socially visiting him in the hospital. No h/o CAD or cath. Tele with [facility] Review of Systems Review of Systems: All systems reviewed & are unremarkable except as noted in HPI & below Physical Exam Constitutional: WD/WN, vitals as above Eyes: + anicteric sclerae Neck: trachea midline, no thyromegaly Respiratory: normal respiratory effort, lungs clear to auscultation Cardiovascular: RRR, no murmur, no edema Chest (Breasts): Chest: normal inspection of chest Gastrointestinal (Abdomen): normal bowel sounds, soft, nontender, no hepatosplenomegaly Musculoskeletal: Extremities: extremities normal to inspection; no cyanosis and no clubbing Skin: no rashes, warm and dry Neurologic: moves all extremities and awake; no focal motor deficits Psychiatric: A+Ox3, euthymic affect Lymphatic: no lymphedema Results & Data Results & Data ([facility]) Vital Signs (Past 12 Hours) Vital Signs Temp Pulse Pulse Resp BP Pulse Ox 01/26/20 08:00 36.6 C 85 16 124/66 97 01/26/20 07:45 78 01/26/20 03:38 36.6 C 88 18 107/52 L 96 01/26/20 00:01 98 H 01/25/20 23:04 36.8 C 96 H 16 99/50 L 91 Laboratory Results 01/26/20 01/26/20 01/26/20 Range/Units 06:33 06:33 06:33 WBC 7.70 (4.8-10.8) K/uL RBC 4.10 L (4.7-6.1) M/uL Hgb 11.9 L (14.0-18.0) g/dL Hct 35.6 L (42-52) % MCV 86.8 (80-100) fL MCH 29.0 (25-34) pg MCHC 33.4 (32-36) g/dL RDW Std Deviation 43.3 (36.4-46.3) fL RDW Coeff of Alison 13.7 (11.5-14.5) % Plt Count 245 (130-400) K/uL MPV 9.8 (7.4-10.4) fL Immature Gran % (Auto) % Neut % (Auto) % Lymph % (Auto) % [place] % (Auto) % Eos % (Auto) % Baso % (Auto) % Immature Gran # (Auto) (0.00-0.02) K/uL Neut # (Auto) (1.4-6.5) K/uL Lymph # (Auto) (1.2-3.4) K/uL [place] # (Auto) (0.11-0.59) K/uL Eos # (Auto) (0-0.5) K/uL Baso # (Auto) (0-0.2) K/uL PT (9.0-12.0) Seconds INR (0.9-1.1) APTT (21.0-31.0) Seconds PTT Ratio D-Dimer (0-500) ug/L FEU Sodium 140 (136-145) mmol/L Potassium 3.7 (3.5-5.1) mmol/L Chloride 104 (98-107) mmol/L Carbon Dioxide 29 (21-32) mmol/L Anion Gap 7.0 (3-11) BUN 25 H (7-18) mg/dl Creatinine 0.82 (0.6-1.4) mg/dl Est Cr Clr Drug Dosing 56.4 Est GFR ( Amer) 91.5 Est GFR (Non-Af Amer) 79.0 BUN/Creatinine Ratio 30.7 H (10-20) Glucose 158 H (70-99) mg/dl POC Glucose (70-99) mg/dl Estimat Average Glucose 126 mg/dl Hemoglobin A1c 6.0 H (4.5-5.6) % Calcium 8.3 L (8.5-10.1) mg/dl Total Bilirubin 0.5 (0.2-1) mg/dl AST 146 H (15-37) U/L ALT 40 (12-78) U/L Alkaline Phosphatase 60 (45-117) U/L Total Creatine Kinase (39-308) U/L Troponin I 31.300 H* (0-0.045) ng/ml Total Protein 6.4 (6.4-8.2) gm/dl Albumin 3.4 (3.4-5.0) gm/dl Globulin 3.0 (2.5-4.0) gm/dl Albumin/Globulin Ratio 1.1 (0.9-2) Triglycerides 122 (0-150) mg/dl Cholesterol 161 (0-200) mg/dl LDL Cholesterol, Calc 98 mg/dl VLDL Cholesterol, Calc 24 mg/dl HDL Cholesterol 39 mg/dl Cholesterol/HDL Ratio 4 Lipase (73-393) U/L 01/25/20 01/25/20 01/25/20 Range/Units 21:14 20:51 18:08 WBC (4.8-10.8) K/uL RBC (4.7-6.1) M/uL Hgb (14.0-18.0) g/dL Hct (42-52) % MCV (80-100) fL MCH (25-34) pg MCHC (32-36) g/dL RDW Std Deviation (36.4-46.3) fL RDW Coeff of Alison (11.5-14.5) % Plt Count (130-400) K/uL MPV (7.4-10.4) fL Immature Gran % (Auto) % Neut % (Auto) % Lymph % (Auto) % [place] % (Auto) % Eos % (Auto) % Baso % (Auto) % Immature Gran # (Auto) (0.00-0.02) K/uL Neut # (Auto) (1.4-6.5) K/uL Lymph # (Auto) (1.2-3.4) K/uL [place] # (Auto) (0.11-0.59) K/uL Eos # (Auto) (0-0.5) K/uL Baso # (Auto) (0-0.2) K/uL PT (9.0-12.0) Seconds INR (0.9-1.1) APTT (21.0-31.0) Seconds PTT Ratio D-Dimer (0-500) ug/L FEU Sodium (136-145) mmol/L Potassium (3.5-5.1) mmol/L Chloride (98-107) mmol/L Carbon Dioxide (21-32) mmol/L Anion Gap (3-11) BUN (7-18) mg/dl Creatinine (0.6-1.4) mg/dl Est Cr Clr Drug Dosing Est GFR ( Amer) Est GFR (Non-Af Amer) BUN/Creatinine Ratio (10-20) Glucose (70-99) mg/dl POC Glucose 200 H 185 H (70-99) mg/dl Estimat Average Glucose mg/dl Hemoglobin A1c (4.5-5.6) % Calcium (8.5-10.1) mg/dl Total Bilirubin (0.2-1) mg/dl AST (15-37) U/L ALT (12-78) U/L Alkaline Phosphatase (45-117) U/L Total Creatine Kinase (39-308) U/L Troponin I 14.700 H* (0-0.045) ng/ml Total Protein (6.4-8.2) gm/dl Albumin (3.4-5.0) gm/dl Globulin (2.5-4.0) gm/dl Albumin/Globulin Ratio (0.9-2) Triglycerides (0-150) mg/dl Cholesterol (0-200) mg/dl LDL Cholesterol, Calc mg/dl VLDL Cholesterol, Calc mg/dl HDL Cholesterol mg/dl Cholesterol/HDL Ratio Lipase (73-393) U/L 01/25/20 01/25/20 01/25/20 Range/Units 15:00 15:00 15:00 WBC 6.85 (4.8-10.8) K/uL RBC 4.91 (4.7-6.1) M/uL Hgb 14.2 (14.0-18.0) g/dL Hct 43.1 (42-52) % MCV 87.8 (80-100) fL MCH 28.9 (25-34) pg MCHC 32.9 (32-36) g/dL RDW Std Deviation 44.3 (36.4-46.3) fL RDW Coeff of Alison 13.8 (11.5-14.5) % Plt Count 274 (130-400) K/uL MPV 10.2 (7.4-10.4) fL Immature Gran % (Auto) 0.3 % Neut % (Auto) 90.7 % Lymph % (Auto) 8.6 % [place] % (Auto) 0.3 % Eos % (Auto) 0.1 % Baso % (Auto) 0.0 % Immature Gran # (Auto) 0.02 (0.00-0.02) K/uL Neut # (Auto) 6.21 (1.4-6.5) K/uL Lymph # (Auto) 0.59 L (1.2-3.4) K/uL [place] # (Auto) 0.02 L (0.11-0.59) K/uL Eos # (Auto) 0.01 (0-0.5) K/uL Baso # (Auto) 0.00 (0-0.2) K/uL PT 11.0 (9.0-12.0) Seconds INR 1.0 (0.9-1.1) APTT 27.8 (21.0-31.0) Seconds PTT Ratio 1.0 D-Dimer 430 (0-500) ug/L FEU Sodium 138 (136-145) mmol/L Potassium 3.8 (3.5-5.1) mmol/L Chloride 102 (98-107) mmol/L Carbon Dioxide 26 (21-32) mmol/L Anion Gap 10.0 (3-11) BUN 26 H (7-18) mg/dl Creatinine 1.04 (0.6-1.4) mg/dl Est Cr Clr Drug Dosing Not Reportable Est GFR ( Amer) 74.0 Est GFR (Non-Af Amer) 63.8 BUN/Creatinine Ratio 25.2 H (10-20) Glucose 272 H (70-99) mg/dl POC Glucose (70-99) mg/dl Estimat Average Glucose mg/dl Hemoglobin A1c (4.5-5.6) % Calcium 8.9 (8.5-10.1) mg/dl Total Bilirubin 0.4 (0.2-1) mg/dl AST 18 (15-37) U/L ALT 29 (12-78) U/L Alkaline Phosphatase 77 (45-117) U/L Total Creatine Kinase 181 (39-308) U/L Troponin I 0.134 H* (0-0.045) ng/ml Total Protein 7.5 (6.4-8.2) gm/dl Albumin 3.8 (3.4-5.0) gm/dl Globulin 3.7 (2.5-4.0) gm/dl Albumin/Globulin Ratio 1.0 (0.9-2) Triglycerides (0-150) mg/dl Cholesterol (0-200) mg/dl LDL Cholesterol, Calc mg/dl VLDL Cholesterol, Calc mg/dl HDL Cholesterol mg/dl Cholesterol/HDL Ratio Lipase 107 (73-393) U/L PG Care Time/CCT Total # of Minutes Spent Total Time Spent with Patient: Total time spent is greater than 50% in coordination of care (as documented) at patient's floor/unit and/or counseling patient: Coding Level of Care Code 69392 Subseq Hosp Care Lvl 3 Diagnoses Non-ST elevation (NSTEMI) myocardial infarction I21.4 Hypertension I10 Hypercholesterolemia E78.00 Diabetes mellitus E11.9 Left knee DJD M17.12 Peripheral neuropathy G62.9 Radiculopathy due to lumbar intervertebral disc disorder M51.16 DVT prophylaxis Z29.9
--- NOTE | 2020-01-26 11:47 | Cardiology Consultation ---
Date of Consultation January 26, 2020 Assessment & Plan (1) Non-ST elevation (NSTEMI) myocardial infarction: While the patient's presentation is slightly atypical for acute coronary syndrome with respect to the character of his symptoms, did appear to have a coronary event. I think this is the most likely explanation for the rise in his biomarkers regional wall motion abnormalities. He certainly has risk factors for coronary disease and seem to have some symptoms of angina leading up to this event. He has been started on systemic anticoagulation with Lovenox. He was started on metoprolol. He was continued on a daily aspirin and his lipid agent which changed to high-dose atorvastatin. We discussed options for evaluation to include coronary angiography or conservative therapy. I recommended angiography. I explained the risks benefits and alternatives to the patient and we will plan on proceeding as soon as the room is available. (2) Hypercholesterolemia: Currently on high-dose atorvastatin (3) Hypertension: Blood pressure appears to be well controlled his outpatient medical regimen which consists of hydrochlorothiazide lisinopril. Will need to monitor this closely once he is on metoprolol as well. 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 Patient states that over the past couple of weeks he has noticed some symptoms of exertional discomfort primarily in the upper back while at ascending stairs a performing more moderate activity. This was fairly mild in nature in relatively brief in duration. However, yesterday he noticed a similar symptom at rest. With more pronounced. He was advised to seek medical attention and presented to the emergency room for evaluation. He took aspirin at home and had near resolution of his symptoms. He did not require any additional treatment for his symptoms. He had some mild breathing difficulty associated with this back discomfort. He did not have precordial chest pain. He did not have radiation to the arm or jaw. Last evening he also does some similar symptoms which were fairly transient in nature. Currently he is comfortable. His primary concern over the past several months has been progressive neuropathy and weakness in the lower extremities. He is currently using assistive devices for ambulation. This appears to have been progressive and become quite severe over the course of 11 months. Allergies Allergy/AdvReac Type Severity Reaction Status Date / Time Sulfa (Sulfonamide Allergy Unknown ? 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 lower urinary tract symptoms (luts) (Chronic) Hypercholesterolemia (Chronic) Hypertension (Chronic) Left knee DJD Peripheral neuropathy (Chronic) Social History Preferred Language: Panamanian Communication Ability: Effective Riding Teacher Required: No Beliefs That Will Affect Care: None Current Living Situation: Alone Feels Safe at Home: Yes Safety Concerns: Feels Safe At This Time Smoking Status: Light tobacco smoker Tobacco Type: cigars ; Hx Alcohol Use: No Hx Substance Use: No Review of Systems Review of Systems: All systems reviewed & are unremarkable except as noted in HPI & below No lower extremity edema. Otherwise feeling well recently Physical Exam Physical Exam: The patient is alert and oriented. Mood and affect appeared normal. He answered all questions appropriately. HEENT: Pupils are equal and reactive to light and accommodation. Extraocular movements are intact. The sclerae are anicteric. Neuro: Cranial nerves intact Neck: Patient's neck is supple. He has palpable carotid pulses bilaterally without bruits on auscultation. There is no evidence of jugular venous distention. The thyroid is not enlarged. Lungs: Clear to auscultation bilaterally. He has good air movement without use of accessory muscles. No rales wheezes or rhonchi. Cardiac: Heart demonstrates a regular rate and rhythm. Normal S1 and S2. No murmurs on examination. Pulses: The patient has palpable radial pulses bilaterally that are equal in intensity Extremities: There was no evidence of hypoperfusion. There is no cyanosis or clubbing. There is no edema. Skin: I did not appreciate any rashes on examination today. Results & Data ([facility]) Vital Signs (Past 12 Hours) Vital Signs Temp Pulse Pulse Resp BP Pulse Ox 01/26/20 08:00 36.6 C 85 16 124/66 97 01/26/20 07:45 78 01/26/20 03:38 36.6 C 88 18 107/52 L 96 01/26/20 00:01 98 H Laboratory Results Abnormal Lab Results 01/25/20 01/25/20 01/25/20 15:00 15:00 15:00 WBC 6.85 RBC 4.91 Hgb 14.2 Hct 43.1 MCV 87.8 MCH 28.9 MCHC 32.9 RDW Std Deviation 44.3 RDW Coeff of Alison 13.8 Plt Count 274 MPV 10.2 Immature Gran % (Auto) 0.3 Neut % (Auto) 90.7 Lymph % (Auto) 8.6 Lincoln % (Auto) 0.3 Eos % (Auto) 0.1 Baso % (Auto) 0.0 Immature Gran # (Auto) 0.02 Neut # (Auto) 6.21 Lymph # (Auto) 0.59 L Lincoln # (Auto) 0.02 L Eos # (Auto) 0.01 Baso # (Auto) 0.00 PT 11.0 INR 1.0 APTT 27.8 PTT Ratio 1.0 D-Dimer 430 Sodium 138 Potassium 3.8 Chloride 102 Carbon Dioxide 26 Anion Gap 10.0 BUN 26 H Creatinine 1.04 Est Cr Clr Drug Dosing Not Reportable Est GFR ( Amer) 74.0 Est GFR (Non-Af Amer) 63.8 BUN/Creatinine Ratio 25.2 H Glucose 272 H POC Glucose Estimat Average Glucose Hemoglobin A1c Calcium 8.9 Total Bilirubin 0.4 AST 18 ALT 29 Alkaline Phosphatase 77 Total Creatine Kinase 181 Troponin I 0.134 H* Total Protein 7.5 Albumin 3.8 Globulin 3.7 Albumin/Globulin Ratio 1.0 Triglycerides Cholesterol LDL Cholesterol, Calc VLDL Cholesterol, Calc HDL Cholesterol Cholesterol/HDL Ratio Lipase 107 01/25/20 01/25/20 01/25/20 18:08 20:51 21:14 WBC RBC Hgb Hct MCV MCH MCHC RDW Std Deviation RDW Coeff of Alison Plt Count MPV Immature Gran % (Auto) Neut % (Auto) Lymph % (Auto) Lincoln % (Auto) Eos % (Auto) Baso % (Auto) Immature Gran # (Auto) Neut # (Auto) Lymph # (Auto) Lincoln # (Auto) Eos # (Auto) Baso # (Auto) PT INR APTT PTT Ratio D-Dimer Sodium Potassium Chloride Carbon Dioxide Anion Gap BUN Creatinine Est Cr Clr Drug Dosing Est GFR ( Amer) Est GFR (Non-Af Amer) BUN/Creatinine Ratio Glucose POC Glucose 185 H 200 H Estimat Average Glucose Hemoglobin A1c Calcium Total Bilirubin AST ALT Alkaline Phosphatase Total Creatine Kinase Troponin I 14.700 H* Total Protein Albumin Globulin Albumin/Globulin Ratio Triglycerides Cholesterol LDL Cholesterol, Calc VLDL Cholesterol, Calc HDL Cholesterol Cholesterol/HDL Ratio Lipase 01/26/20 01/26/20 01/26/20 06:33 06:33 06:33 WBC 7.70 RBC 4.10 L Hgb 11.9 L Hct 35.6 L MCV 86.8 MCH 29.0 MCHC 33.4 RDW Std Deviation 43.3 RDW Coeff of Alison 13.7 Plt Count 245 MPV 9.8 Immature Gran % (Auto) Neut % (Auto) Lymph % (Auto) Lincoln % (Auto) Eos % (Auto) Baso % (Auto) Immature Gran # (Auto) Neut # (Auto) Lymph # (Auto) Lincoln # (Auto) Eos # (Auto) Baso # (Auto) PT INR APTT PTT Ratio D-Dimer Sodium 140 Potassium 3.7 Chloride 104 Carbon Dioxide 29 Anion Gap 7.0 BUN 25 H Creatinine 0.82 Est Cr Clr Drug Dosing 56.4 Est GFR ( Amer) 91.5 Est GFR (Non-Af Amer) 79.0 BUN/Creatinine Ratio 30.7 H Glucose 158 H POC Glucose Estimat Average Glucose 126 Hemoglobin A1c 6.0 H Calcium 8.3 L Total Bilirubin 0.5 AST 146 H ALT 40 Alkaline Phosphatase 60 Total Creatine Kinase Troponin I 31.300 H* Total Protein 6.4 Albumin 3.4 Globulin 3.0 Albumin/Globulin Ratio 1.1 Triglycerides 122 Cholesterol 161 LDL Cholesterol, Calc 98 VLDL Cholesterol, Calc 24 HDL Cholesterol 39 Cholesterol/HDL Ratio 4 Lipase Diagnostic Findings Echocardiogram demonstrated normal LV systolic function with a regional wall motion abnormality in the distal anterior wall and apex. ECG Additional Comments: Serial EKGs were obtained since his admission which demonstrated sinus rhythm and ST segment changes concerning for ischemia. PG Care Time/CCT Total # of Minutes Spent Total Time Spent with Patient: Total time spent is greater than 50% in coordination of care (as documented) at patient's floor/unit and/or counseling patient: Coding Level of Care Code 60357 Initial Inpt Care Lvl 3 Diagnoses Non-ST elevation (NSTEMI) myocardial infarction I21.4 Hypercholesterolemia E78.00 Hypertension I10
[2020-01-26] MEDS ORDERED: HEPARIN (PORCINE) 1000 UNIT/ML 10 ML (CATH LAB USE ONLY) ONE ×2 (13:03→14:49)
[2020-01-26] MEDS ORDERED: NiCARDipine HCL INJ 2.5 MG/ML 10 ML AMP ONE (13:03)
[2020-01-26] MEDS ORDERED: fentaNYL citrate 100 MCG/2 ML VIAL ONE (13:04)
[2020-01-26] MEDS ORDERED: MIDAZOLAM HCL 1 MG/ML 2ML VIAL ONE (13:04)
[2020-01-26] MEDS ORDERED: NITROGLYCERIN/D5W 100MCG/ML 20ML SYR ONE (13:04)
--- NOTE | 2020-01-26 13:25 | Pre Anesthesia Assessment ---
Date of Service January 26, 2020 Pre Sedation Assessment Vital Signs Temp Pulse Pulse Resp BP BP Pulse Ox 01/26/20 12:00 36.7 C 75 16 114/67 96 01/26/20 08:00 36.6 C 85 16 124/66 97 01/26/20 07:45 78 01/26/20 03:38 36.6 C 88 18 107/52 L 96 01/26/20 00:01 98 H 01/25/20 23:04 36.8 C 96 H 16 99/50 L 91 01/25/20 21:00 36.4 C L 95 H 18 118/65 93 01/25/20 17:44 36.6 C 100 H 18 134/74 97 01/25/20 16:36 102 H 95 01/25/20 16:30 102 H 128/80 94 01/25/20 16:23 105 H 26 H 95 01/25/20 16:00 98 H 24 127/77 95 01/25/20 15:54 101 H 24 140/82 96 01/25/20 15:30 107 H 95 01/25/20 15:18 106 H 95 01/25/20 14:48 36.9 C 112 H 18 152/87 H 98 Cardiovascular + regular rate Respiratory + respiratory effort normal Pre-Sedation Airway Assessment Smoking Status: Light tobacco smoker Hx Sleep Apnea: No Hx Difficult Intubation: No Short, Thick Neck: No Thyromental Distance: > or= 3.5 Finger Breadths Oral Cavity: + WNL Mallampati Class: III Procedure Planning Contraindications for Sedation: none Current Medications Reviewed: Yes Notes The planned sedation has been discussed with the patient. Informed Consent was obtained. I have identified the patient, determined the appropriateness of sedation and have assessed the patient immediately prior to the procedure. All medicine(s) and interventions are by my order.
--- NOTE | 2020-01-26 14:06 | Cardiac Catheterization ---
[facility] Data: Manager Dialysis Cardiac Status Clinical evaluation leading to the procedure CAD Presenation: Non STEMI Diagnostic Physicians Name: Andre Farah MD Closure Device Recommendations: PCI without planned CABG Cardiac Cath Procedure Full Procedure Date January 26, 2020 Pre-Procedure Diagnosis Pre-Procedure Diagnosis: Non STEMI AUC Score AUC Score: 8 Post-Procedure Diagnosis Post-Procedure Diagnosis: Severe CAD Procedure(s) Performed Procedure(s) Performed: Coronary Angiography and Left Heart Cath Pot Feeder Andre Farah MD Elevator Worker(s) none Estimated Blood Loss Estimated Blood Loss: None Medication(s) Medication(s): Fentanyl, Heparin, Lidocaine 1%, Nicardipine, Nitroglycerin and Versed Summary of Findings Procedure performed: Left heart catheterization, selective coronary angiography Staff pants maker: Andre Farah MD Indication: The patient is an 89-year-old gentleman without a known history of coronary disease who presented with an NSTEMI. Procedure detail: The patient was informed of the risk benefits and alternatives to the intended procedure, he understood and wished to proceed. He was taken to the cardiac catheterization suite in a fasting state. Conscious sedation was administered per protocol and the patient was monitored electrocardiographically throughout today's procedure. The right radial area is prepped and draped in usual sterile fashion. This area was anesthetized using subcutaneous ministration of lido paulette solution. The right radial artery was simply accessed using Seldinger technique and a 5 Turkmen arterial sheath was placed at the site over guidewire. The sheath was used facilitate passage of the cardiac catheters for selective coronary angiography and left heart catheterization. Images were taken in multiple orthogonal views prior to removal of the catheter. Patient tolerated this portion of the procedure well. There were no immediate complications. Equipment used: 5 Turkmen [place] 4 Findings: Coronary angiography Left main: Left main coronary artery was relatively short but bifurcated normally into left anterior descending and left circumflex arteries Left anterior descending: Left anterior descending was a large transapical vessel. There was an 80% stenosis in its proximal portion before the takeoff of a large first diagonal branch. There was a 99% sub-acute lesion in the mid vessel prior to the takeoff of a second diagonal branch. There were luminal irregularities throughout the remainder of the vessel Left circumflex: Left circumflex vessel was a large codominant vessel. It produced a large first OM branch. There was approximately 99% stenosis after the takeoff of the first OM branch. There was a second large OM vessel without evidence of disease Right coronary artery: The right coronary artery was relatively small in caliber. There was a 70% proximal lesion that did not dilate with administration of nitroglycerin. The distal vessel appeared normal and produced a small PL and PDA branch. Conclusions: Codominant arterial system Three-vessel coronary disease involving the proximal and mid LAD, mid left circumflex and proximal right coronary artery No evidence of aortic stenosis Normal left ventricular end-diastolic pressure Hemodynamics Rest Ao:: 125/69 mmHg Final Ao: 112/64 mmHg LV: 110/0 mmHg with LVEDP of 5 mmHg Recommendations Recommendations: PCI without planned CABG Specimens Specimens: None Radiation Exposure (mGy) 738 Contrast (mls) 65 Procedural Complication(s) None Disposition PCU I attest to the content of the Intraoperative Record and any orders documented therein. Any exceptions are noted below. [facility] Card Cath Procedure Codes Cardiac Catheterization Procedure 1: Cardiovascular Cath Procedures: 96452 Coronaries and LHC (+/-LV) Moderate Sedation Procedure 1: Sedation/Anesthesia: 73279 Mod Sedation by the same physician;Init15 Min Child Age 5 & Up Procedure 2: Sedation/Anesthesia: 60847 Mod Sedation by the same physician; Ea [id number] Minutes PG Care Time/CCT Total # of Minutes Spent Total Time Spent with Patient: Total time spent is greater than 50% in coordination of care (as documented) at patient's floor/unit and/or counseling patient:
[2020-01-26] MEDS ORDERED: CLOPIDOGREL BISULFATE 300 MG TAB ONE (15:27)
--- NOTE | 2020-01-26 15:58 | Post Anesthesia Assessment ---
Date of Service January 26, 2020 Post Sedation Assessment Vital Signs Temp Pulse Pulse Resp BP BP BP 01/26/20 15:48 98.4 F 63 63 16 116/66 116/66 01/26/20 12:00 98.1 F 75 16 114/67 01/26/20 08:00 97.9 F 85 16 124/66 01/26/20 07:45 78 01/26/20 03:38 97.9 F 88 18 107/52 L 01/26/20 00:01 98 H 01/25/20 23:04 98.2 F 96 H 16 99/50 L 01/25/20 21:00 97.5 F L 95 H 18 118/65 01/25/20 17:44 97.9 F 100 H 18 134/74 01/25/20 16:36 102 H 01/25/20 16:30 102 H 128/80 01/25/20 16:23 105 H 26 H 01/25/20 16:00 98 H 24 127/77 Pulse Ox 01/26/20 15:48 96 01/26/20 12:00 96 01/26/20 08:00 97 01/26/20 07:45 01/26/20 03:38 96 01/26/20 00:01 01/25/20 23:04 91 01/25/20 21:00 93 01/25/20 17:44 97 01/25/20 16:36 95 01/25/20 16:30 94 01/25/20 16:23 95 01/25/20 16:00 95 Recovery Score Activity: Moves 4 extremities Respiration: Deep Breath/Cough Circulation: +/-20% PreAnes Value Consciousness: Fully Awake Oxygen Saturation: O2 needed for >90% Discharge Sedation Level of Care: Fast Track Phase II Post Sedation Plan On clinical assessment, the patient appears to have tolerated the sedation without complications. Patient is recovering as anticipated. Patient will continue to be monitored by nursing and may be discharged when sedation discharge criteria are met per below protocol. Upon Completions of procedure up to 15 minutes continue every 5 minute vital signs and the P.A.R. score; then discharge to a Phase I or Fast Track to Phase II per the following guidelines: * Discharge Patient to appropriate Phase II area if PAR is 8 or greater or return to pre- procedure baseline. The post - procedure orders will be as directed. * If PAR score is less than 8 or not return to pre-procedure baseline then patient will follow Phase I monitoring till PAR is reached for Phase II. The Phase I may be done in procedure room or may call to secure a Phase I area. * If naloxone or flumazenil are used for reversal, hold in Phase I for continued monitoring from when last reversal dose was given for a minimum of 60 minutes or longer pending the nurse and/or physician discretion of patient condition before discharge to Phase II. Please call the Sedation Physician to re-evaluate and complete post-note for discharge to Phase II area. Do NOT discharge from procedure sedation or Phase 1 until post- sedation evaluation note is complete by procedure /sedation MD Sedation Discharge Instructions to be given to the patient at discharge to home.
--- NOTE | 2020-01-26 16:02 | Cardiac Catheterization ---
[facility] Data: Sales Management Intern Cardiac Status Clinical evaluation leading to the procedure CAD Presenation: Non STEMI Anginal Classification: CCS IV Heart Failure: No Cardiogenic Shock within 24 Hours: No Cardiac Arrest within 24 Hours: No Imaging Studies Past 6 Months: Yes Stress Studies Past 6 Months: No Diagnostic Physicians Name: Andre Tapia MD Status: Elective Closure Device Percutaneous Entry Location: Radial Closure Device: Radial Band Recommendations: PCI without planned CABG PCI Indication: PCI for high risk Non-CONCHA Lesion Segment Name: Proximal - mid LAD Culprit Artery: Yes Stenosis Prior to Rx (%): 95 Chronic Total Occlusion: No IVUS: No FFR: No Pre-Procedure JOSE Flow: 3 Previously Treated Lesion: No Lesion Complexity: Non-High/Non-C Lesion Length (mm): 30 Thrombus Present: Yes Bifurcation Lesion: No Guidewire Across Lesion: Stenosis Post-Procedure (%): 0 Post-Procedure JOSE Flow: 3 Devices(s) Deployed: Yes Yes Lesion #2 Segment Name: mid circumflex Culprit Artery: Yes Stenosis Prior to Rx (%): 95 Chronic Total Occlusion: No IVUS: No FFR: No Pre-Procedure JOSE Flow: 3 Previously Treated Lesion: No Lesion Complexity: Non-High/Non-C Lesion Length (mm): 10 Thrombus Present: Yes Bifurcation Lesion: No Guidewire Across Lesion: Yes Stenosis Post-Procedure (%): 0 Post-Procedure JOSE Flow: 3 Devices(s) Deployed: Yes Intraprocedure Events Significant Disection: No Perforation: No Cardiac Cath Procedure Full Procedure Date January 26, 2020 Pre-Procedure Diagnosis Pre-Procedure Diagnosis: Non STEMI AUC Score AUC Score: 8 Post-Procedure Diagnosis Post-Procedure Diagnosis: Severe CAD and Successful PCI Procedure(s) Performed Procedure(s) Performed: Coronary Angiography and Drug Eluting Stent Machinery Engineer Andre Tapia MD Collar Separator(s) none Estimated Blood Loss Estimated Blood Loss: 15 Medication(s) Medication(s): Clopidogrel, Fentanyl, Heparin, Lidocaine 1%, Nicardipine, Nitroglycerin and Versed Summary of Findings Indication: High risk NSTEMI Access: 6 Fr right radial artery Catheters: EBU 3.5 guide Findings: For full details of patient's coronary angiography please see cath report dictated by Dr. Farah. Briefly, patient found to have severe multi-vessel disease including sequential proximal to mid LAD lesions and mid circumflex disease. Decision to proceed with PCI. -- PCI -- Antithrombotic therapy: Heparin, clopidogrel Procedure: Left main cannulated with EBU 3.5 guide Men'S [employer] Boys[employer] Clothing Salesperson 50 wire passed across proximal to mid LAD lesions Proximal and mid LAD lesions predilated with 2.5 compliant balloon Mid LAD stented with 2.75 x 22 mm Erlin drug-eluting stent Proximal LAD stented with 2.75 x 18 mm Erlin drug-eluting stent from ostium, overlapping with initial stent. Stent post-dilated with 3.0 noncompliant balloon IC vasodilators administered for spasm Post procedure JOSE 3 flow, stent well expanded with minimal residual stenosis and no apparent cardiac complications. Men'S [employer] Boys[employer] Clothing Salesperson 50 wire removed from LAD and placed into circumflex With the aid of a guideliner mid circumflex lesion dilated with 2.0 balloon Mid circumflex stented with 2.75 x 12 mm Erlin drug-eluting stent Stent postdilated with 2.75 NC balloon IC vasodilators administered for spasm Post procedure JOSE 3 flow, stent well expanded with minimal residual stenosis and no apparent cardiac complications. Arterial Closure: TR band Summary: 1. Successful PCI of ostial to mid LAD with 2 overlapping drug-eluting stents (2.75 x 18, 2.75 x 22 mm Erlin; postdilated with 3.0 NC). 2. Successful PCI of mid circumflex with a single drug-eluting stent (2.75 x 12 mm Erlin). Recommendations: To PCU for continued monitoring Loaded with clopidogrel 600 mg in Sales Management Intern Continue dual-antiplatelet therapy for at least 1 year Continue statin, and ASCVD risk factor modification Consult cardiac Rehab Hemodynamics Rest Ao:: 110/53/77 Final Ao: 105/45/73 LV: -- Recommendations Recommendations: PCI without planned CABG Specimens Specimens: None Radiation Exposure (mGy) -- Contrast (mls) 165 Fluids (cc crystalloids) Fluids (cc crystalloids): none Drains Drains: none Anesthesia moderate Procedural Complication(s) None Disposition PCU I attest to the content of the Intraoperative Record and any orders documented therein. Any exceptions are noted below. [facility] Card Cath Procedure Codes Moderate Sedation Procedure 1: Sedation/Anesthesia: 62705 Mod Sedation by a different physician ;Init15 Min Child Age 5&Up Procedure 2: Sedation/Anesthesia: 35722 Mod Sedation by a different physician;Ea Additional 15 Minutes Stenting Procedure 1: Cardiovascular Stent Procedures: 12058 Perc transcatheter placement of intracoronary stent(s), with ang Procedure 2: Cardiovascular Stent Procedures: 76682 Ea addl branch of a major coronary artery PG Care Time/CCT Total # of Minutes Spent Total Time Spent with Patient: Total time spent is greater than 50% in coordination of care (as documented) at patient's floor/unit and/or counseling patient:
[2020-01-26] MEDS ORDERED: SODIUM CHLORIDE 0.9% 1000ML 1,000 ML IV SCH (16:15)
--- NOTE | 2020-01-26 19:14 | Electrocardiogram Report ---
Test Reason : Blood Pressure : / mmHG Vent. Rate : 103 BPM Atrial Rate : 103 BPM P-R Int : 154 ms QRS Dur : 094 ms QT Int : 364 ms P-R-T Axes : 061 076 063 degrees QTc Int : 476 ms Sinus tachycardia Otherwise normal ECG When compared with ECG of 25-JAN-2020 15:57, Criteria for Anterior infarct are no longer Present ST no longer depressed in Lateral leads Confirmed by Andre Farah ([id number]) on 01/26/2020 7:14:25 PM Referred By: REFERRED SELF Confirmed By:Shilo Farah
--- NOTE | 2020-01-26 19:25 | Electrocardiogram Report ---
Test Reason : Blood Pressure : / mmHG Vent. Rate : 069 BPM Atrial Rate : 069 BPM P-R Int : 164 ms QRS Dur : 088 ms QT Int : 448 ms P-R-T Axes : 049 055 088 degrees QTc Int : 480 ms Normal sinus rhythm When compared with ECG of 25-JAN-2020 21:36, (unconfirmed) Vent. rate has decreased BY 34 BPM T wave inversion now evident in Anterior leads Confirmed by Andre Farah ([id number]) on 01/26/2020 7:25:04 PM Referred By: REFERRED SELF Confirmed By:Shilo Farah
[2020-01-27] MEDS: ENOXAPARIN 80 MG/0.8 ML SYR SQ SCH (05:32)
[2020-01-27 06:10] LABS: Hemoglobin 11.9 g/dL (14.0-18.0); Mean Corpuscular Hemoglobin 28.8 pg (25-34); Mean Corpuscular Hgb Conc 33.1 g/dL (32-36); Mean Corpuscular Volume 87.2 fL (80-100); Platelet Count 238 K/uL (130-400); RDW Coefficient of Variation 13.9 % (11.5-14.5); RDW Standard Deviation 44.3 fL (36.4-46.3); Red Blood Count 4.13 M/uL (4.7-6.1); White Blood Count 10.28 K/uL (4.8-10.8)
[2020-01-27 06:41] LABS: Albumin Level 3.4 gm/dl (3.4-5.0); BUN Creatinine Ratio 33.3 (10-20); Calcium 8.4 mg/dl (8.5-10.1); Est GFR (African American) 93.9; Potassium 3.4 mmol/L (3.5-5.1)
[2020-01-27 06:44] LABS: Albumin Globulin Ratio 1.2 (0.9-2); Bilirubin,Total 0.4 mg/dl (0.2-1); Globulin 2.9 gm/dl (2.5-4.0); Total Protein 6.3 gm/dl (6.4-8.2)
[2020-01-27] MEDS ORDERED: POTASSIUM CHLORIDE 20 MEQ TABCR PO STA (07:53)
[2020-01-27] MEDS: lisinopriL 5 MG TAB PO SCH (08:29)
[2020-01-27] MEDS: METOPROLOL TARTRATE 25 MG TAB PO SCH (08:29)
[2020-01-27] MEDS: ATORVASTATIN 40 MG TAB PO SCH (08:29)
[2020-01-27] MEDS: INSULIN ASPART 100 UNITS/ML 3 ML PEN SC SCH (08:37)
[2020-01-27] MEDS ORDERED: ASPIRIN 81 MG ECTAB PO SCH (09:00)
[2020-01-27] MEDS ORDERED: CLOPIDOGREL BISULFATE 75 MG TAB PO SCH (09:00)
--- NOTE | 2020-01-27 10:51 | Discharge Summary ---
Date of Service January 27, 2020 Admission HPI Per Admitting Provider This is an 89 yo M with PMHx of HTN, HLD, DM II, peripheral neuropathy, Left knee DJD, who presents to the ER with acute onset of substernal chest pain radiating to his back which occurred around 1 PM today. Patient presented with his son, who is at bedside.. This morning, the pt went to a routine orthopedist appointment and had a injection into the left knee for pain, proceeded to run some errands, had lunch all in his usual health. Once he was sitting down on his sofa at home, he began to experience pain. He became diaphoretic, felt crushing chest pain rated a 8/10, which radiated between his shoulder blades. He denies that he had ever experienced this type of pain before, and was not doing anything exertional at the onset. And called his son who brought him to the ER. Patient was found to have a bumped troponin at 0.134, and ST depressions in the lateral leads on EKG. patient was given aspirin, 1 dose of oral nitro under the tongue, and Nitropaste in the ER and his pain has completely subsided. He has had several other issues go on within the past few months including weight loss of >40 lbs for unexplained reasons which he calls "atrophy" everywhere. He is drinking glucerna protein supplements once daily. He has had progressive neuropathy into his legs, with a right foot drop develop and now wears a brace for help. He uses a walker within his 2 story home at all times, and is considering installing a chair lift to get upstairs. He took a break from his statin for 1 month to see if any of his symptoms improved, however didn't, and restarted it about 1 week ago. He has discussed these complaints with his PCP Dr. Bowen and neurologist, Dr. Louis. He was also previously scheduled for further workup at [facility], but has not been able to go since - and no travel advisory. He ultimately is discouraged by his changes in health, and reports "I was cutting my grass and everything my self last year.", stating that he can no longer do something like this. He denies any other specific complaints. Principal Diagnosis NSTEMI Discharge Exam Constitutional WD/WN, vitals as above Eyes + anicteric sclerae Neck trachea midline, no thyromegaly Respiratory normal respiratory effort, lungs clear to auscultation Cardiovascular Rate/Rhythm: regular rate and regular rhythm Heart Sounds: no murmur Vessels: dorsalis pedis pulses present (but diminished on right at 1+, left 2+) Extremities: no edema Chest (Breasts) Chest: normal inspection of chest Gastrointestinal (Abdomen) normal bowel sounds, soft, nontender, no hepatosplenomegaly Musculoskeletal Extremities: extremities normal to inspection; no cyanosis and no clubbing Skin no rashes, warm and dry Neurologic moves all extremities, + focal motor deficit (right foot drop) and awake Psychiatric A+Ox3, euthymic affect Lymphatic no lymphedema Discharge Data Allergies Allergy/AdvReac Type Severity Reaction Status Date / Time Sulfa (Sulfonamide Allergy Unknown ? Verified 01/25/20 15:51 Antibiotics) REMEMBER/ A CHILD Consultations 01/25/20 16:35 ED Decision to Admit Stat 01/25/20 16:46 Consult Cardiology Routine Consult Case Management - Discharge Planning Routine 01/26/20 16:17 Consult Cardiac Rehabilitation Routine Procedures Performed Operation Date: 01/26/20 12:30 Actual Procedures s Cineradiography w/Routine Exam - Jorge Luis Farah MD p Cath, Left with Cors and Vent - Jorge Luis Farah MD s Drug Eluting Stent SGl Vessel - Jorge Luis Tapia MD s Drug Eluting Stent each ADDTL Vessel - Jorge Luis Tapia MD Ordered Studies 01/26/20 11:03 CL Cath Imgs for PACS use only Routine ECHO CXR Hospital Course (1) Non-ST elevation (NSTEMI) myocardial infarction: Was admitted and placed on therapeutic dosing of Lovenox, ASA, metoprolol -Trop peaked at 31, now trending downward - EKG with ST depressions in the inferolateral leads on admission and then resolved on ECG last night - ECHO with +WMAs in distal anterior wall and septum with hypokinesis - Cardiology consulted,-went for cardiac cath and had: 1. Successful PCI of ostial to mid LAD with 2 overlapping drug-eluting stents (2.75 x 18, 2.75 x 22 mm Dillon; postdilated with 3.0 NC). 2. Successful PCI of mid circumflex with a single drug-eluting stent (2.75 x 12 mm Dillon). - lipid panel with LDL 98--> changed simvastatin to atorvastatin 80mg daily -started ASA, Plavix 75mg daily and started on metoprolol 12.5mg po bid -continue lisinopril from home and dc HCTZ to avoid low BPs -no events on tele after cath, no recurrent pain with ambulation prior to discharge (2) Hypertension: -Continue lisinopril and also started metoprolol for NSTEMI -BP well controlled (3) Hypercholesterolemia: -Change simvastatin to high intensity statin -- atorvastatin 80 mg HS--patient reports that he had taken himself off of this for 1 month to see a peripheral neuropathy/myalgias it would improve, and resumed this 1 week ago. - LDL not at goal at 98 (4) Diabetes mellitus: - A1C here well controlled at 6.0% - ISS with accuchecks achs - HH/DM diet - restart glipizide and metformin from home on dc (5) Left knee DJD: - Follow with ortho as outpt. Had Left knee injection the AM of admission (6) Peripheral neuropathy: f/u as outpt DOes have diminished pedal pulses on right foot (with foot drop) Consider PAD workup as outpt with Cardiology (7) Radiculopathy due to lumbar intervertebral disc disorder: - Follow with neuro as outpt, has had EMG completed - Pt had been scheduled to follow up with [facility] regarding peripheral neuropathy/radiculopathy in october, will need to have follow up with PCP arranged to get scheduled for this. Pt did not go to [facility] due to COVID-19 and no travel advisory. (8) DVT prophylaxis: -Lovenox 1 mg/kg CODE: Full code Dispo: stable for dc to home Total Time Total Time Spent Total Time Spent (In Minutes): >30 min Total Time Includes: Examination of the Patient, Discharge Planning and Medication Reconciliation Discharge Plan Discharge Items Patient Disposition: Home - Self-Care Reason For Visit: NSTEMI Discharge Diagnosis: NSTEMI Condition on Discharge: Good Activity: As commented below Lifting: None Lifting Comment: with right hand Driving/Machine Use: Resume 3 days after discharge Non-emergency contact: Primary Care Provider and [employer] Call non-emergency contact if: you have any medication questions, your symptoms worsen, your pain is not controlled, your pain is worsening, your pain is unusual for you and your pain is concerning for you Follow-up/Referrals: Armen Bowen MD [Primary Care Provider] - (Please follow up in 1-2 weeks. ) Jorge Luis Farah MD [Physician] - (Please call for a follow up appointment within 1-2 weeks.) Diet: Carb Consistent or DM2 and Heart Healthy Addtl Attending Provider Instructions: You were admitted for a heart attack and had 3 stents placed in your heart. It is important to take aspirin and Plavix daily as blood thinners to prevent clot formation inside these stents. You were also started on metoprolol which is a medication to help prevent future heart attacks. It does also lower blood pressure and heart rate. Your lisinopril will be continued, but the HCTZ portion will be discontinued. Your cholesterol medication was changed from simvastatin to atorvastatin which is a better statin in heart disease treatment. Follow up with Dr. Farah or Dr. Jiménez of Cardiology within 1-2 weeks, and with Dr. Bowen as well. ACTIVITY RECOMMENDATIONS: Excess manipulation of the wrist should be avoided for the next 24-48 hours. * No lifting over 2 pounds (approximately a 1/2 gallon of milk) with the utilized arm for 24 hours. * No strenuous activity such as bowling or tennis for 3 days. * Keep the site of the procedure covered with a bandage for 24 hours. *You may shower the day after the procedure. Do not take a tub bath or submerge the puncture site in water for the next 3 days. *Do not operate any motorized equipment for 3 days. SPECIAL CARE INSTRUCTIONS: The site may be slightly bruised and sore following your procedure. Should any of the following occur, contact the Dr. who performed your procedure. 1. Redness/inflammation, swelling, chills, or fever, or colored drainage at procedure site within 3-7 days after your procedure. 2. Coldness, discoloration, ongoing numbness, severe pain, or swelling. Expect mild tingling of hand and tenderness at the puncture site for up to three days. If this persists beyond three days, or other symptoms develop, notify the DrHang who performed your procedure. BLEEDING: If the procedure site on your wrist begins to bleed, do not panic 1. Place 1 or 2 fingers firmly just slightly above the insertion site to stop the bleeding. You may be able to feel your pulse as you hold pressure. 2. Lift your finger after 5 minutes to see if the bleeding has stopped. 3. Once the bleeding has stopped, gently wipe the wrist area clean with a bandage. * If the bleeding from your wrist does not stop after 10 minutes, or if there is a large amount of bleeding or spurting, call 911 (do not drive yourself to the hospital). SKIN IRRITATION: * You may experience some redness and/or swelling in the area where radiation was administered. If any skin irritation occurs, please contact your family physician. FOLLOW UP VISIT: Keep any scheduled doctor appointments. Home Care: * Take your medications exactly as directed. Don't skip doses. * Remember that recovery after a heart attack takes time. Plan to rest for at lease 4-8 weeks while you recover. Then return to normal activity when your doctor says it's okay. * Ask your doctor about joining a heart rehabilitation program. * Tell your doctor if you are feeling depressed. Feelings of sadness are common after a heart attack, but it is important that you speak to someone if you are feeling overwhelmed by these feelings. * If you are having chest pain, call 911 for an ambulance. Do NOT drive yourself to the hospital. * Ask your family members to learn CPR. * Learn to take your own blood pressure and pulse. Keep a record of your results. Ask your doctor when you should seek emergency medical attention. He or she will tell you which blood pressure reading is dangerous. Lifestyle Changes: * Maintain a healthy weight. Get help to lose any extra pounds. * Cut back on salt. * Limit canned, dried, packaged, and fast foods. * Don't add salt to your food. * Season foods with herbs instead of salt when you cook. * Break the smoking habit. Enroll in a stop-smoking program to improve your chances of success. * Limit fatty foods. * Ask your doctor about having your lipid levels checked regularly. * Build up your activity according to your doctor's recommendation. * Ask your doctor when it's okay to resume sexual activity. * Tell your doctor about any erectile dysfunction (ED) medication you are taking. Some ED medications are not safe if you take certain heart medications. * Try to manage stress. Follow Up: It is important for you to keep your follow up appointments with your medical provider. Pending Studies at Discharge: No Stand-Alone Forms: My [facility] Medications and DC Order Prescriptions: New clopidogrel 75 mg Tablet 75 mg PO QAM Qty: 30 RF: 0 atorvastatin 80 mg tablet 80 mg PO DAILY Qty: 30 RF: 0 aspirin 81 mg Tablet,Delayed Release (Dr/Ec) 81 mg PO QAM Qty: 30 RF: 0 lisinopril [Zestril] 5 mg Tablet 5 mg PO QAM Qty: 30 RF: 0 metoprolol tartrate 25 mg Tablet 12.5 mg PO BID Qty: 30 RF: 0 Continued glipizide 5 mg tablet extended release 24hr 5 mg PO QAM RF: 0 metformin 1,000 mg tablet 1,000 mg PO BID Qty: 180 RF: 3 Discontinued lisinopril-hydrochlorothiazide 20-12.5 mg tablet 1 tab PO QAM RF: 0 simvastatin 40 mg tablet 40 mg PO PM RF: 0 Discharge Orders: Discharge Order (Routine); Ordered 01/27/20 Ordered By: Minna Schaffer/Other Patient Handouts: Managing Type 2 Diabetes Admission Data Admit Date/Time: 01/25/20 16:45 Attending Provider: Minna Curran Admit Provider: Armen Cruz Primary Care Provider: Armen Bowen Other Providers: Armen Cruz ; Jorge Luis Farah Coding Level of Care Code D/C Day Management >30 mins Diagnoses Non-ST elevation (NSTEMI) myocardial infarction I21.4 Hypertension I10 Hypercholesterolemia E78.00 Diabetes mellitus E11.9 Left knee DJD M17.12 Peripheral neuropathy G62.9 Radiculopathy due to lumbar intervertebral disc disorder M51.16 DVT prophylaxis Z29.9
--- NOTE | 2020-01-27 11:52 | Cardiology Progress Note ---
Date of Service January 27, 2020 Assessment & Plan (1) Non-ST elevation (NSTEMI) myocardial infarction: -troponin peaked at 31.3. -preserved systolic function with a distal anterior and apical wall motion abnormality. -two overlapping VENUS ostial to mid LAD. -single VENUS to the mid LCx. -stable for hospital discharge. -continue metoprolol tartrate, lisinopril, atorvastatin, aspirin, and clopidogrel. (2) Hypercholesterolemia: -high-dose atorvastatin. (3) Hypertension: -adequate control on current regimen. Admission and Anticipated Discharge Date Admission Date: January 25, 2020 Subjective The patient is resting comfortably in bed without complaints of chest pain or dyspnea. He is anxious for hospital discharge. Physical Exam Physical Exam: In general this is a well-developed well-nourished white male in no acute distress. HEENT exam is negative. Neck is supple with full carotid upstrokes. There are no carotid bruits. Jugular venous pressure is flat at 90. There is no thyromegaly. Cardiovascular exam reveals a regular rhythm with a normal S1 and S2. No S3, S4, or murmurs are noted. Lungs are clear without rales, rhonchi, or wheezes. Abdomen is soft and nontender without bruits. Extremities reveal intact radial artery pulses bilaterally. Ecchymosis noted of the right wrist and forearm. There is no peripheral edema. Results & Data ([facility]) Vital Signs (Past 12 Hours) Vital Signs Temp Pulse Pulse Resp BP BP Pulse Ox 01/27/20 11:03 36.5 C 70 16 120/68 119/69 95 01/27/20 08:30 72 01/27/20 08:08 36.5 C 70 16 120/68 95 01/27/20 04:01 36.7 C 68 18 115/72 96 01/27/20 00:52 73 01/27/20 00:20 36.5 C 64 18 112/69 94 PG Care Time/CCT Total # of Minutes Spent Total Time Spent with Patient: Total time spent is greater than 50% in coordination of care (as documented) at patient's floor/unit and/or counseling patient: Coding Level of Care Code 23797 Subseq Hosp Care Lvl 3 Diagnoses Non-ST elevation (NSTEMI) myocardial infarction I21.4 Hypercholesterolemia E78.00 Hypertension I10
== END 2020-01-27 11:45 | disposition home or self-care (01) | DRG 247 ==
LOC: ED 14:43 → SUATTDRO 16:45 → 2S 16:45